=== PATIENT | male | born 1965 | race Caucasian/White ===

== ENCOUNTER 2017-06-17 07:43 | Emergency (ER) | payer SELFPAY ==
[2017-06-17 07:49] VITALS: BP 149/79
--- NOTE | 2017-06-17 08:21 | ER Document Report ---
ED Skin Rash/Insect Bite/Abscs - General Chief Complaint: Rash Stated Complaint: RASH ON FEET Time Seen by Provider: 06/17/17 07:53 Mode of Arrival: Ambulatory Information source: Patient Notes: Patient is a 52-year-old male who presents to the ER today for rash to the bilateral feet and low back/upper buttocks 6 weeks. 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 He has tried multiple creams and powders [id number] for athlete's foot with no relief. TRAVEL OUTSIDE OF THE [place] IN LAST 30 DAYS: No - Related Data Allergies/Adverse Reactions: No Known Allergies Allergy (Verified 06/17/17 08:03) Home Medications: Current Home Medications Aspirin [Aspirin EC] 81 mg PO DAILY 06/17/17 [History] Past Medical History - General Information source: Patient - Social History Smoking Status: Never Smoker Chew tobacco use (# tins/day): No Frequency of alcohol use: Occasional Drug Abuse: None Family History: Reviewed & Not Pertinent Patient has suicidal ideation: No Patient has homicidal ideation: No Renal/ Medical History: Denies: Hx Peritoneal Dialysis Past Surgical History: Reports: Hx Appendectomy, Hx Orthopedic Surgery - Left shoulder Review of Systems - Review of Systems Constitutional: No symptoms reported EENT: No symptoms reported Cardiovascular: No symptoms reported Respiratory: No symptoms reported Gastrointestinal: No symptoms reported Genitourinary: No symptoms reported Male Genitourinary: No symptoms reported Musculoskeletal: No symptoms reported Skin: See HPI Hematologic/Lymphatic: No symptoms reported Neurological/Psychological: No symptoms reported Physical Exam - Vital signs Vitals: Temp Pulse Resp BP Pulse Ox 98.6 F 87 16 149/79 H 98 06/17/17 07:47 06/17/17 07:47 06/17/17 07:47 06/17/17 07:47 06/17/17 07:47 - Notes Notes: PHYSICAL EXAMINATION: GENERAL: Well-appearing and in no acute distress. HEAD: Atraumatic, normocephalic. EYES: Pupils equal round and reactive to light, extraocular movements intact, sclera anicteric, conjunctiva are normal. NECK: Normal range of motion, supple without lymphadenopathy LUNGS: CTAB and equal. No wheezes rales or rhonchi. HEART: Regular rate and rhythm without murmurs EXTREMITIES: Normal range of motion, no pitting edema. No cyanosis. NEUROLOGICAL: Cranial nerves grossly intact. Normal sensory/motor exams. PSYCH: Normal mood, normal affect. SKIN: Warm, Dry, normal turgor, with dry, cracked, peeling skin and Erythema with satelite lesions and moisture to bilateral dorsal feet at base of toes 2-5 and between toes, also to intergluteal cleft area Course - Re-evaluation Re-evalutation: 06/17/17 11:50 Patient treated with ketoconazole cream - Vital Signs Vital signs: Temp Pulse Resp BP Pulse Ox 98.6 F 87 16 149/79 H 98 06/17/17 07:47 06/17/17 07:47 06/17/17 07:47 06/17/17 07:47 06/17/17 07:47 Discharge - Discharge Clinical Impression: Fungal infection of foot Qualifiers: Laterality: bilateral Qualified Code(s): B35.3 - Tinea pedis Condition: Stable Disposition: HOME, SELF-CARE Instructions: Skin Fungus ([facility]) Additional Instructions: Return immediately for any new or worsening symptoms. Follow up with primary care provider, call tomorrow to make followup appointment. Prescriptions: Ketoconazole 60 gm TP BID #2 cream..g.
== END 2017-06-17 08:30 | disposition home or self-care (01) ==
LOC: ER 07:43
DX: B35.3 Tinea pedis (principal); R21 Rash and other nonspecific skin eruption; Z79.899 Other long term (current) drug therapy
CPT/HCPCS: 99282